=== PATIENT | female | born 2005 | race Caucasian/White ===

== ENCOUNTER 2024-01-02 13:09 | Outpatient (REF) | payer OTHER, SELFPAY ==
--- NOTE | ~2024-01-02 | MR_ITS ---
EXAMINATION: MR CERVICAL SPINE WITHOUT CONTRAST CLINICAL INFORMATION: Cervicalgia. COMPARISON: None available. TECHNIQUE: MRI of the cervical spine was obtained using routine sequences without contrast. FINDINGS: Mild reversal the normal cervical lordosis centered on C4-C5. Minimal degenerative anterolisthesis of C3 on C4. Otherwise, normal anatomic alignment. Mild disc desiccation at C3-C4 and C4-C5. Otherwise, the intervertebral discs are of normal height and signal. The vertebral body heights are well-maintained. No suspicious marrow edema. The no demonstrated spinal cord signal abnormalities. Limited evaluation of the soft tissues of the neck without demonstrated abnormalities. The flow voids of the major cervical vessels are maintained. Normal appearance of the cervicomedullary junction and visualized posterior fossa. SPINAL LEVELS: C2-C3: Normal annular contour. There is no uncovertebral joint arthropathy. There is no facet joint arthropathy. There is no neural foraminal stenosis. There is no spinal canal stenosis. C3-C4: Minimal disc-osteophyte complex. There is no uncovertebral joint arthropathy. There is mild right and no left facet joint arthropathy. There is no neural foraminal stenosis. There is no spinal canal stenosis. C4-C5: Minimal disc-osteophyte complex. There is no uncovertebral joint arthropathy. There is mild left and no right facet joint arthropathy. There is no neural foraminal stenosis. There is no spinal canal stenosis. C5-C6: Normal annular contour. There is no uncovertebral joint arthropathy. There is no facet joint arthropathy. There is no neural foraminal stenosis. There is no spinal canal stenosis. C6-C7: Normal annular contour. There is no uncovertebral joint arthropathy. There is no facet joint arthropathy. There is no neural foraminal stenosis. There is no spinal canal stenosis. C7-T1: Normal annular contour. There is no uncovertebral joint arthropathy. There is no facet joint arthropathy. There is no neural foraminal stenosis. There is no spinal canal stenosis. MR/MR cervical spine wo con IMPRESSION: Minimal multilevel degenerative spondyloarthropathy of the cervical spine as described in detail above. No overt spinal canal stenosis or nerve root compression.
== END 2024-01-02 13:10 | disposition home or self-care (01) ==
LOC: HO.MRI 13:09
PROVIDERS: Visit Provider Student in an Organized Health Care Education/Training Program
DX: M54.2 Cervicalgia (principal)
CPT/HCPCS: 72141